=== PATIENT | male | born 1975 | race Asian ===

== ENCOUNTER 2020-02-28 14:57 | Outpatient (REF) | payer BC, SELFPAY | END 2020-02-28 14:58 | disposition home or self-care (01) | LOC: HO.LAB 14:57 | PROVIDERS: Visit Provider Internal Medicine | DX: Z20.828 Contact with and (suspected) exposure to other viral communicable diseases (principal) | CPT/HCPCS: 36415; C9803; U0003 ==

== ENCOUNTER 2022-05-20 10:01 | Emergency (ER) | payer BC, SELFPAY ==
[2022-05-20 10:05] VITALS: BP 139/98; PULSE 88; RESP 18; TEMP 36.4; O2SAT 97; BMI 25.3
--- NOTE | 2022-05-20 10:38 | ED_ITS ---
HPI - General Adult General Chief complaint: Allergic Reaction Stated complaint: med allergy reaction Time Seen by Provider: 05/20/22 10:38 Source: patient Mode of arrival: ambulatory Limitations: no limitations History of Present Illness HPI narrative: Patient is a 47 year old assigned male at with a history of allergic dermatitis and varicella zoster presenting to the emergency department today with a diffuse rash. Patient states that he has been taking [employer] brand night/day flu medications to help him sleep. He took 1 tablet of day flu a couple days ago and noticed new onset of itchy small macular rash on his left hand. He took 2 tablets of night time flu around 9:30pm last night and woke up around midnight with a diffuse burning feeling rash over his lip, left eye, neck, trunk, armpits, back, and legs. He did noticed a burning sensation shortly before the onset of the rash and the rash progressed quickly to painful vesicles. He took ibuprofen and loratadine this morning without relief. Patient denies any dizziness, lightheadedness, abdominal pain, nausea, vomiting, fever, chills, blurry vision, double vision, loss of vision, chest pain, difficulty breathing, shortness of breath, back pain, night sweats, pain with urination, increased urinary frequency, increased urinary urgency, blood in his urine or stool, syncope or a near syncopal episode, recent trauma or falls, bowel incontinence, bladder incontinence, bowel retention, bladder retention, or any other complaints at this time. 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 Onset (ago): hour(s) Location: face, neck, chest, back, abdomen, upper extremity and lower extremity Quality: burning Pain Consistency: constant Relieving factors: none Associated symptoms: denies other symptoms Treatments prior to arrival: NSAID Review of Systems Review of Systems: Yes all other systems are reviewed and are negative Constitutional: Constitutional: Reports no additional constitutional complaints Eyes: Eyes: Denies blurry vision, Denies exophthalmos, Denies change in vision and Denies eye discharge Comments: painful blister on the lower inner corner of left eye ENT: Reports system reviewed and no additional complaints, except as documented Cardiovascular: Cardiovascular: Reports no additional cardiovascular complaints Respiratory: Respiratory: Reports no additional respiratory complaints Gastrointestinal: Gastrointestinal: Reports no additional gastrointestinal complaints Genitourinary: Genitourinary: Reports no additional male genitourinary complaints Musculoskeletal: Musculoskeletal: Reports no additional musculoskeletal complaints Integumentary/Breasts: Skin/Breast: Reports system reviewed and no additional complaints, except as docu, Denies swelling, Denies change in pigmentation, Reports changing lesions, Reports pruritus, Reports lesions and Reports new lesions Neurologic: Reports system reviewed and no additional complaints, except as documented Psychiatric: Psychiatric: Reports no additional psychiatric complaints Endocrine: Endocrine: Reports no additional endocrine complaints Hematologic/Lymphatic: Hematologic/Lymphatic: Reports no additional hematologic/lymphatic complaints Allergic/Immunologic: Allergic/Immunologic: Reports no additional allergic/immunologic complaints PMFSH Past Medical History Attestation statement: The following information was validated with the patient. Source: old records reviewed and nursing notes reviewed Social History Social History Advance Directives: No Advance Directives Information Provided: Yes Physical Exam ED Vital Signs: Vital Signs - 24 hr 05/20/22 10:05 05/20/22 10:41 Temperature 97.5 F Pulse Rate 88 99 Respiratory Rate 18 16 Blood Pressure 139/98 H 157/105 H Pulse Oximetry 97 97 Oxygen Delivery Method Room Air Room Air BMI result Body Mass Index 25.3 Const General: cooperative and healthy appearing Nutritional Appearance: average body habitus and well nourished Orientation/consciousness: oriented to person, oriented to place, oriented to time and patient oriented x3 Limitations: no limitations [facility] Head: Yes normal to inspection Ears: hearing grossly normal bilaterally General nose exam: Normal external nose present Face and sinus: Yes normal facial exam, No abrasion and No laceration Mouth: Normal oral and palatal mucosa present, no drooling and no muffled voice Eyes General: appearance normal, both eyes and all related structures Periorbital: periorbital findings normal Eyelids: Yes other (clear fluid filled vesicle noted on the lower inner corner of left eye) Conjunctivae: conjunctivae normal Pupils: Equal, round and reactive pupils present EOM: EOMs intact bilaterally Neck Other: multiple clear fluid filled vesicles noted around the neck Neck: Yes full ROM Chest Other: multiple clear fluid filled vesicles noted across anterior chest Chest palpation & inspection: normal inspection of the chest Breast/axilla palpation: abnormal palpation of the axilla (multiple clear fluid filled vesicles noted under armpits bilaterally) Resp Effort & Inspection: normal respiratory effort and able to speak in complete sentences Auscultation: clear to auscultation bilaterally Cardio Rate: regular rate Rhythm: regular rhythm GI Inspection: Yes normal to inspection Palpation (GI): Soft to palpation Skin Other: Neuro General: oriented to person, oriented to place, oriented to time and patient oriented x3 Cranial nerves: Yes Equal, round and reactive pupils present Cognition (Neuro): normal cognition Motor exam (neuro): 5/5 motor strength present throughout Sensory Exam: Normal double simultaneous stimulation for sensation Coordination: [id number] test normal Extrem General: Yes normal to inspection, Yes full ROM and Yes capillary refill normal Psych Appearance: grossly normal Mental Status: mental status grossly normal Affect: normal affect Attitude: cooperative Thought process: Normal thought process present Thought content: Normal thought content present Insight: Good insight present (Psych) Medical Decision Making Medical Decision Making MDM Narrative: Patient is a 47 year old assigned male at presenting to the emergency department today with a new diffuse rash. Patient's physical exam was as documented in the physical exam portion of this chart and as seen in the pictures. I called and spoke to the patient's dermatology team who requested the patient be discharged and report directly to their office for biopsy and change in medication management. I explained my physical exam findings to the patient. I answered all questions asked by the patient. I stressed the importance of the patient taking his medication as prescribed. I stressed the importance of the patient following up with his primary care provider and reporting directly to his supervisor uranium processing office after discharge. I stressed the importance of the patient returning to the emergency department immediately if his symptoms were to worsen or if he were to develop any dizziness, shortness of breath, difficulty breathing, chest pain, blurry vision, loss of vision, nausea, vomiting, abdominal pain, fever, chills, back pain, or any other complaints. Patient verbalized agreement and understanding with this treatment plan and discharge. Differential Diagnosis Differential Diagnoses: The differential diagnosis associated with the p resentation includes rash Consult Healthcare Provider Management of the patient was discussed with: Bobbin Drier (spoke to patient's supervisor uranium processing team as described in the MDM of this chart) Critical Care Time Critical Care Time Critical Care Time: Yes Total Critical Care Time: 30 Attestation: I spent 30 minutes of Critical Care Time with this patient. This does not include time spent on separately reported billable procedures. Discharge Plan Discharge Clinical Impression: Rash Patient Disposition: Home, Self-Care Additional Instructions: Follow up with your supervisor uranium processing today. Return to the emergency department immediately if your symptoms worsen or if you develop any dizziness, shortness of breath, difficulty breathing, chest pain, blurry vision, loss of vision, nausea, vomiting, abdominal pain, fever, chills, back pain, or any other complaints. Interventions: ED Discharge Assessment Last Done: 05/20/22 11:37 Discharge Date/Time: 05/20/22 11:38 Print Language: Iraqi
[2022-05-20 10:41] VITALS: BP 157/105; PULSE 99; RESP 16; O2SAT 97
== END 2022-05-20 11:38 | disposition home or self-care (01) ==
PROVIDERS: Emergency Provider Emergency Medicine
DX: R21 Rash and other nonspecific skin eruption (principal)
CPT/HCPCS: 99283